=== PATIENT | female | born 1945 | race Caucasian/White ===

== ENCOUNTER → 2016-12-22 | Outpatient (CLI) | payer MEDICARE, OTHER ==
[~2016-12-22] MED LIST: ATOR20TA9 PO; CALC-255 PO; CHOL20002 PO; CRAN1TAB6 PO; DABI150C PO; DEXL60CA2 PO; ESTR1PAT10 TP; FLEC50TA25 PO; INSU100I18 SC; INSU100I29 SC; LYSI500T25 PO; METO25TA91 PO; VALS40TA2 PO
== END | disposition home or self-care (01) ==
LOC: CFH 11:45
PROVIDERS: ATTEND Internal Medicine Cardiovascular Disease
DX: I08.2 Rheumatic disorders of both aortic and tricuspid valves (principal); I10 Essential (primary) hypertension; E11.9 Type 2 diabetes mellitus without complications
CPT/HCPCS: 78452; 93017; 93306; A9502

== ENCOUNTER 2017-02-25 22:02 | Emergency (ER) | payer MEDICARE, OTHER ==
[~2017-02-25] VITALS: Ht 149.9 cm; Wt 76.2 kg
[2017-02-25] MEDS ORDERED: ROSU5TAB PO (22:33)
[2017-02-25] MEDS ORDERED: ASPI-650 PO (22:34)
[2017-02-25] MEDS ORDERED: FLUT1DIS3 INH (22:35)
[2017-02-25] MEDS ORDERED: CYAN1TAB29 PO (22:36)
[2017-02-25] MEDS ORDERED: OMEG-157 PO (22:36)
[2017-02-25 22:55] LABS: BASOPHILS # (AUTO) 0.04 x10^3/uL (0-0.1); BASOPHILS % (AUTO) 0 % (0-1); EOSINOPHILS # (AUTO) 0.09 x10^3/uL (0-0.4); EOSINOPHILS % (AUTO) 1 % (1-7); LYMPHOCYTES # (AUTO) 3.68 x10^3/uL (1-3.4); LYMPHOCYTES % (AUTO) 39 % (22-44); MD NO; MEAN CORPUSCULAR HEMOGLOBIN 28.2 pg (27.0-34.8); MEAN CORPUSCULAR HGB CONC 33.4 g/dL (32.4-35.8); MEAN CORPUSCULAR VOLUME 84.5 fL (80-100); MEAN PLATELET VOLUME 7.9 fL (7.4-10.4); MONOCYTES # (AUTO) 0.62 x10^3/uL (0.2-0.8); MONOCYTES % (AUTO) 7 % (2-9); NEUTROPHILS # (AUTO) 4.96 x10^3/uL (1.8-6.8); NEUTROPHILS % (AUTO) 53 % (42-75); PLATELET COUNT 327 x10^3/uL (130-400); RED BLOOD COUNT 4.64 x10^6/uL (3.82-5.3); RED CELL DISTRIBUTION WIDTH 13.1 % (9.6-15.2)
[2017-02-25 23:04] LABS: ALBUMIN 3.8 g/dL (3.4-5.0); ANION GAP 8 mmol/L (5-15); CHLORIDE 106 mmol/L (98-107)
[2017-02-25 23:10] LABS: ALANINE AMINOTRANSFERASE 33 U/L (12-78); ALKALINE PHOSPHATASE 100 U/L (45-117); BILIRUBIN,TOTAL 0.4 mg/dL (0.2-1.0); CREATININE 1.03 mg/dL (0.55-1.02); TOTAL PROTEIN 8.3 g/dL (6.4-8.2); TROPONIN I < 0.015 ng/mL (0.000-0.045)
[2017-02-25 23:54] VITALS: BP 135/59
== END 2017-02-25 23:57 | disposition home or self-care (01) ==
LOC: ED 23:51
DX: R00.2 Palpitations (principal); E78.00 Pure hypercholesterolemia, unspecified; E11.9 Type 2 diabetes mellitus without complications; I10 Essential (primary) hypertension; I48.91 Unspecified atrial fibrillation
CPT/HCPCS: 36415; 71045; 80053; 83735; 84443; 84484; 85025; 93005; 99285

== ENCOUNTER 2017-03-19 09:54 | Emergency (ER) | payer MEDICARE, OTHER ==
[~2017-03-19] VITALS: Ht 149.9 cm; Wt 74.0 kg
[~2017-03-19 09:54] MED LIST changes: +ASPI-650 PO; +CYAN1TAB29 PO; +FLUT1DIS3 INH; +OMEG-157 PO; +ROSU5TAB PO
[2017-03-19] MEDS ORDERED: METO25TA91 PO (10:46)
[2017-03-19] MEDS ORDERED: RIVA20TA PO (10:46)
[2017-03-19] MEDS ORDERED: ROSU20TA PO (10:46)
[2017-03-19] MEDS ORDERED: ASPI-496 PO (10:46)
[2017-03-19] MEDS ORDERED: INSU100V13 SC (10:47)
[2017-03-19] MEDS ORDERED: MAALOX/HYOSCYAMINE/LIDOCAINE 45 ML BTL ONE (10:50)
[2017-03-19] MEDS ORDERED: MAALOX/HYOSCYAMINE/LIDOCAINE 45 ML BTL PO ONE (11:00)
[2017-03-19 11:05] LABS: BASOPHILS # (AUTO) 0.03 x10^3/uL (0-0.1); BASOPHILS % (AUTO) 0 % (0-1); EOSINOPHILS # (AUTO) 0.04 x10^3/uL (0-0.4); EOSINOPHILS % (AUTO) 1 % (1-7); LYMPHOCYTES # (AUTO) 2.16 x10^3/uL (1-3.4); LYMPHOCYTES % (AUTO) 26 % (22-44); MD NO; MEAN CORPUSCULAR HEMOGLOBIN 28.2 pg (27.0-34.8); MEAN CORPUSCULAR HGB CONC 33.1 g/dL (32.4-35.8); MEAN PLATELET VOLUME 8.2 fL (7.4-10.4); MONOCYTES # (AUTO) 0.42 x10^3/uL (0.2-0.8); MONOCYTES % (AUTO) 5 % (2-9); NEUTROPHILS % (AUTO) 68 % (42-75); PLATELET COUNT 333 x10^3/uL (130-400); RED BLOOD COUNT 4.82 x10^6/uL (3.82-5.3); RED CELL DISTRIBUTION WIDTH 13.2 % (9.6-15.2)
[2017-03-19 11:17] LABS: ALBUMIN 3.9 g/dL (3.4-5.0); ANION GAP 7 mmol/L (5-15); CALCIUM 9.3 mg/dL (8.5-10.1); CHLORIDE 106 mmol/L (98-107)
[2017-03-19 11:24] LABS: ALANINE AMINOTRANSFERASE 23 U/L (12-78); ALKALINE PHOSPHATASE 89 U/L (45-117); BILIRUBIN,TOTAL 0.6 mg/dL (0.2-1.0); CREATININE 0.89 mg/dL (0.55-1.02); TOTAL PROTEIN 8.2 g/dL (6.4-8.2); TROPONIN I < 0.015 ng/mL (0.000-0.045)
[2017-03-19 12:12] VITALS: BP 143/52
== END 2017-03-19 12:13 | disposition home or self-care (01) ==
LOC: ED 10:09
DX: R07.89 Other chest pain (principal); K21.0 Gastro-esophageal reflux disease with esophagitis; I48.91 Unspecified atrial fibrillation; E11.9 Type 2 diabetes mellitus without complications; E78.5 Hyperlipidemia, unspecified; I10 Essential (primary) hypertension; Z90.49 Acquired absence of other specified parts of digestive tract
CPT/HCPCS: 36415; 71045; 80053; 84484; 85025; 93005; 99285

== ENCOUNTER 2018-06-03 21:35 | Emergency (ER) | payer MEDICARE, OTHER ==
[~2018-06-03] VITALS: Ht 149.9 cm; Wt 75.1 kg
[~2018-06-03 21:35] MED LIST changes: +ASPI-496 PO; +ATOR20TA37 PO; -ATOR20TA9 PO; -CHOL20002 PO; +CHOL200052 PO; +INSU100V13 SC; +RIVA20TA PO; +ROSU20TA2 PO
--- NOTE | 2018-06-03 22:24 | NUR ---
first contact with pt. pt c/o pressure type of pain on both shoulder and arms.+ weakness. denies SOB/ CP.Neuro intact. pt's aox4. resps even and unlabored. all monitors in place. nsr on cardiac exercise physiologist rate 60-70's at this time. awaiting edmd assessment at this time.
[2018-06-03 22:28] LABS: MICROSCOPIC AUTO
--- NOTE | 2018-06-03 22:30 | NUR ---
PT AMB TO BR AND BACK TO ROOM WITH STEADY GAIT. UA SENT.
[2018-06-03 22:31] LABS: CULTURE INDICATED? YES
[2018-06-03] MEDS ORDERED: FENO160T PO (22:45)
[2018-06-03 22:46] LABS: BASOPHILS # (AUTO) 0.05 x10^3/uL (0-0.1); BASOPHILS % (AUTO) 1 % (0-1); EOSINOPHILS # (AUTO) 0.08 x10^3/uL (0-0.4); EOSINOPHILS % (AUTO) 1 % (1-7); LYMPHOCYTES # (AUTO) 3.12 x10^3/uL (1-3.4); LYMPHOCYTES % (AUTO) 38 % (22-44); MD NO; MEAN CORPUSCULAR HEMOGLOBIN 29.5 pg (27.0-34.8); MEAN CORPUSCULAR HGB CONC 34.3 g/dL (32.4-35.8); MEAN CORPUSCULAR VOLUME 86.1 fL (80-100); MEAN PLATELET VOLUME 8.2 fL (7.4-10.4); MONOCYTES # (AUTO) 0.56 x10^3/uL (0.2-0.8); MONOCYTES % (AUTO) 7 % (2-9); NEUTROPHILS # (AUTO) 4.45 x10^3/uL (1.8-6.8); NEUTROPHILS % (AUTO) 54 % (42-75); PLATELET COUNT 356 x10^3/uL (130-400); RED BLOOD COUNT 4.26 x10^6/uL (3.82-5.3); RED CELL DISTRIBUTION WIDTH 13.5 % (9.6-15.2)
[2018-06-03] MEDS ORDERED: cranberry (22:46)
[2018-06-03] MEDS ORDERED: iron (22:47)
[2018-06-03 22:59] LABS: ALANINE AMINOTRANSFERASE 33 U/L (12-78); ALBUMIN 4.1 g/dL (3.4-5.0); ANION GAP 7 mmol/L (5-15); CALCIUM 9.5 mg/dL (8.5-10.1); CHLORIDE 110 mmol/L (98-107); CREATININE 1.13 mg/dL (0.55-1.02)
[2018-06-03] MEDS ORDERED: ASPIRIN 325 MG TABLET PO ONE (23:00)
[2018-06-03 23:03] LABS: ALKALINE PHOSPHATASE 61 U/L (45-117); BILIRUBIN,TOTAL 0.1 mg/dL (0.2-1.0); TROPONIN I < 0.015 ng/mL (0.000-0.045)
[2018-06-03] MEDS ORDERED: ASPIRIN 325 MG TABLET ONE (23:06)
--- NOTE | 2018-06-03 23:08 | NUR ---
PT MEDICATED PER EMAR. PT TOLERATED WELL.
[2018-06-03 23:51] VITALS: BP 114/55
--- NOTE | 2018-06-03 23:52 | NUR ---
pt given dc instructions and scripts. pt educated regarding dc medications. pt amb to dc with steady gait. no acute distress at dc.
== END 2018-06-03 23:53 | disposition home or self-care (01) ==
LOC: ED 23:11
DX: M25.512 Pain in left shoulder (principal); M25.511 Pain in right shoulder; R53.1 Weakness; N30.00 Acute cystitis without hematuria; K21.9 Gastro-esophageal reflux disease without esophagitis; E78.5 Hyperlipidemia, unspecified; I10 Essential (primary) hypertension; E11.9 Type 2 diabetes mellitus without complications; I48.91 Unspecified atrial fibrillation
CPT/HCPCS: 36415; 71045; 80053; 81001; 84484; 85025; 87086; 93005; 99284

== ENCOUNTER 2018-09-06 07:21 | Outpatient (CLI) | payer MEDICARE, OTHER ==
[~2018-09-06 07:21] MED LIST changes: +FENO160T PO; +cranberry; +iron
== END 2018-09-06 23:59 | disposition home or self-care (01) ==
LOC: CFH 07:21
PROVIDERS: ATTEND Internal Medicine Cardiovascular Disease
DX: I08.8 Other rheumatic multiple valve diseases (principal); I48.0 Paroxysmal atrial fibrillation; I10 Essential (primary) hypertension; E11.9 Type 2 diabetes mellitus without complications; E78.5 Hyperlipidemia, unspecified
CPT/HCPCS: 78452; 93017; 93306; A9502

== ENCOUNTER → 2019-10-14 | Outpatient (CLI) | payer MEDICARE, OTHER | END | disposition home or self-care (01) | LOC: CFH 09:59 | PROVIDERS: ATTEND Internal Medicine Cardiovascular Disease | DX: Z13.6 Encounter for screening for cardiovascular disorders (principal); I25.10 Atherosclerotic heart disease of native coronary artery without angina pectoris; E78.2 Mixed hyperlipidemia | CPT/HCPCS: 75571 ==